=== PATIENT | female | born 1960 | race American Indian/Alaskan Native ===

== ENCOUNTER 2016-08-08 10:39 | Emergency (ER) | payer OTHER ==
[2016-08-08] MEDS ORDERED: BOOSTRIX IM ONE (11:54)
[2016-08-08] MEDS ORDERED: CLEOCIN IM ONE (11:54)
[2016-08-08] MEDS ORDERED: XYLOCAINE 1% 20 mL INFILTRATI ONE (11:54)
--- NOTE | 2016-08-08 11:56 | Emergency Department Report ---
Upper Extremity - HPI Chief Complaint: Extremity Injury, Upper Stated Complaint: FINGER PAIN Time Seen by Provider: 08/08/16 11:43 Upper Extremity: Right Middle Finger (swollen red painful for the past several days) Mechanism: Other (no injury) Symptoms: Yes Pain with Movement, Yes Limited Range of Movement, Yes Swelling, No Deformity ED Review of Systems ROS: Stated complaint: FINGER PAIN Other details as noted in HPI Constitutional: denies: chills, fever Eyes: as per HPI ENT: as per HPI Respiratory: no symptoms reported Gastrointestinal: denies: nausea, vomiting Skin: change in color, change in hair/nails ED Past Medical Hx - Past Medical History Previous Medical History?: No - Surgical History Past Surgical History?: No - Social History Smoking Status: Never Smoker Substance Use Type: None - Medications Home Medications: Home Medications Medication Instructions Recorded Confirmed Last Taken Type Cephalexin [Keflex] 500 mg PO Q6HR #40 capsule 08/08/16 Unknown Rx Sulfamethoxazole/Trimethoprim 1 each PO BID #20 tablet 08/08/16 Unknown Rx [Bactrim DS TAB] traMADol [Ultram 50 MG tab] 50 mg PO Q4HR PRN #15 tablet 08/08/16 Unknown Rx Upper Extremity Exam - Exam General: Vital signs noted. No distress. Alert and acting appropriately. Head and Torso: No HEENT Abnormality, No Neck Tenderness, No Chest/Lungs Abnormality, No Abdominal Tenderness, No Back Tenderness Arm Exam: No Arm/Humerus Tenderness Elbow: No Elbow Tenderness Forearm: No Forearm Tenderness, No Forearm Deformity, No Pain with Pronation, No Pain with Supination Wrist: Yes Normal ROM in Wrist, No Wrist Tenderness, No Wrist Deformity, No Snuffbox Tenderness Hand: Yes Digit(s) Deformity (right third paronychia with cellulitis extending to MIP no axillary or trochlear adenopathy, no lymphangitis.) CMS Exam: Yes Normal Distal Pulses, Yes Normal Capillary Refill, Yes Normal Distal Sensation ED Course Vital Signs 08/08/16 10:48 Temperature 98.3 F Pulse Rate 67 Respiratory 20 Rate Blood Pressure 160/93 O2 Sat by Pulse 99 Oximetry - I & D Right Finger Type of Procedure: Simple Site: right third distal phalanx Blade Size: 11 I & D Procedure: betadine prep, sterile drapes applied, sterile dressing applied Progress: Significant paronychia, incision was made laterally medially and superiorly. No felon. Copious amount of purulent discharge expressed wound cultures obtained finger irrigated extensively with Betadine solution palpation recheck in 24-48 hrs. Critical care attestation.: If time is entered above; I have spent that time in minutes in the direct care of this critically ill patient, excluding procedure time. ED Disposition Clinical Impression: Paronychia of finger of right hand Disposition: DISCHARGED TO HOME OR SELFCARE Is pt being admited?: No Condition: Stable Instructions: Paronychia (ED) Additional Instructions: Return in 2448 hrs. for wound recheck. Take all antibiotics as prescribed. Finish Prescription. Prescriptions: Cephalexin [Keflex] 500 mg PO Q6HR #40 capsule Sulfamethoxazole/Trimethoprim [Bactrim DS TAB] 1 each PO BID #20 tablet traMADol [Ultram 50 MG tab] 50 mg PO Q4HR PRN #15 tablet PRN Reason: Pain Referrals: PRIMARY CARE, [Primary Care Provider] - 3-5 Days
[2016-08-08] MEDS ORDERED: NACL 0.9% 500 ML IR ONE (12:23)
[2016-08-08] MEDS ORDERED: NACL 0.9% IR ONE (12:28)
[2016-08-08 12:43] VITALS: BP 154/90
[2016-08-08] MEDS ORDERED: PERCOCET 5/325 ONE (12:49)
[2016-08-08] MEDS ORDERED: PERCOCET 5/325 PO ONE (12:53)
== END 2016-08-08 13:04 | disposition home or self-care (01) ==
LOC: ED 10:39
DX: L03.011 Cellulitis of right finger (principal)
CPT/HCPCS: 87076; 87116; 87186; 90471; 90715; 96372; 99283

== ENCOUNTER 2016-08-11 08:45 | Emergency (ER) | payer OTHER ==
[2016-08-11 08:53] VITALS: BP 152/90
--- NOTE | 2016-08-11 09:27 | Emergency Department Report ---
ED General Adult HPI - General Chief complaint: Laceration/Recheck/Suture Stated complaint: WOUND CARE Time Seen by Provider: 08/11/16 08:58 Source: patient Mode of arrival: Ambulatory Limitations: No Limitations - History of Present Illness Initial comments: PT states she is here for recheck of her finger. PT states she had her finger drained on . PT states she changed the dressing yesterday. PT states the swelling is improving. PT states the pain improved. PT states that the I and D site will still bleed a little bit. PT states she is hoping to go back to work. Complaint: wound recheck -: days(s) (3 days ago is when pt had the I and D), week(s) (three weeks ago is when pt first noticed swelling to finger) Location: upper extremity (R long finger ) Severity scale (0 -10): 0 Improves with: medication, other (I and D ) Associated Symptoms: denies: fever/chills, nausea/vomiting Treatments Prior to Arrival: none - Related Data Previous Rx's Medication Instructions Recorded Last Taken Type Cephalexin [Keflex] 500 mg PO Q6HR #40 capsule 08/08/16 Unknown Rx Sulfamethoxazole/Trimethoprim 1 each PO BID #20 tablet 08/08/16 Unknown Rx [Bactrim DS TAB] traMADol [Ultram 50 MG tab] 50 mg PO Q4HR PRN #15 tablet 08/08/16 Unknown Rx Allergies Allergy/AdvReac Type Severity Reaction Status Date / Time No Known Allergies Allergy Verified 08/08/16 12:28 ED Review of Systems ROS: Stated complaint: WOUND CARE Other details as noted in HPI Comment: All other systems reviewed and negative Constitutional: denies: chills, fever Musculoskeletal: as per HPI, other (decrease in R finger swelling ) Skin: other (I and D sites, bleed at times, denies drainage ) ED Past Medical Hx - Past Medical History Previous Medical History?: No - Surgical History Past Surgical History?: No - Social History Smoking Status: Never Smoker Substance Use Type: None - Medications Home Medications: Home Medications Medication Instructions Recorded Confirmed Last Taken Type Cephalexin [Keflex] 500 mg PO Q6HR #40 capsule 08/08/16 08/11/16 Unknown Rx Sulfamethoxazole/Trimethoprim 1 each PO BID #20 tablet 08/08/16 08/11/16 Unknown Rx [Bactrim DS TAB] traMADol [Ultram 50 MG tab] 50 mg PO Q4HR PRN #15 tablet 08/08/16 08/11/16 Unknown Rx ED Physical Exam - General Limitations: No Limitations General appearance: alert, in no apparent distress - Head Head exam: Present: atraumatic, normocephalic - Eye Eye exam: Present: normal appearance. Absent: conjunctival injection - ENT ENT exam: Present: normal exam - Neck Neck exam: Present: normal inspection, full ROM - Cardiovascular Cardiovascular Exam: Present: regular rate, normal rhythm - Extremities Exam Extremities exam: Present: normal capillary refill - Expanded Upper Extremity Exam Right Forearm Wrist exam: Present: normal inspection, full ROM. Absent: tenderness Hand Wrist exam: Present: full ROM, tenderness, swelling, other (R long finger with 3 I and D sites around nail bed, no active bleeding or drainage. Swelling noted to R MCP. The surrounding skin is not cellulitic, no streaking up hand. The skin to pt's finger tip is moist. PT had on two gauze dressing and a vasoline gauze dressing. ). Absent: deformity, crepidus, erythema, subungual hematoma - Back Exam Back exam: Present: normal inspection, full ROM - Neurological Exam Neurological exam: Present: alert, oriented X3 - Psychiatric Psychiatric exam: Present: normal affect, normal mood - Skin Skin exam: Present: warm, dry. Absent: erythema ED Course Vital Signs 08/11/16 08:50 Temperature 98.5 F Pulse Rate 65 Respiratory 16 Rate Blood Pressure 152/90 O2 Sat by Pulse 100 Oximetry - Reevaluation(s) Reevaluation #1: 08/11/16 09:44 PT states swelling has improved. Per previous chart, proximal to the I and D site was cellulitic. On today's exam, skin is not red, however site is still swollen. PT aware that she will need to keep her skin open to air at times to allow proper healing. PT aware she will need to continue taking both antibiotics. PT has no questions at this time. - Pulse Oximetry Interpretation Digit-Finger Initial Pulse Oximetry Readin Actions Taken: none ED Medical Decision Making - Differential Diagnosis cellulitis, paryonchia, abscess Critical care attestation.: If time is entered above; I have spent that time in minutes in the direct care of this critically ill patient, excluding procedure time. ED Disposition Clinical Impression: Paronychia of finger of right hand Disposition: DISCHARGED TO HOME OR SELFCARE Is pt being admited?: No Does the pt Need Aspirin: No Condition: Stable Instructions: Abscess (ED), Cellulitis (ED) Additional Instructions: Wash your finger with antibiotic soap at least twice a day. Pat dry. You can cover with a thin layer of over the counter antibiotic ointment. If you are going to be up and active, cover with a thin layer of dry non stick gauze. When you can, keep site open to air so the skin won't get too moist. Return in 2 more days for recheck Return to hospital sooner if your swelling or redness increase or you have concerns Forms: Work/School Release Form(ED) Time of Disposition: 09:51
[2016-08-11] MEDS ORDERED: TRIPLE ANTIBIOTIC TP ONE ×2 (09:31→09:38)
== END 2016-08-11 10:11 | disposition home or self-care (01) ==
LOC: ED 08:45
DX: L03.011 Cellulitis of right finger (principal)
CPT/HCPCS: 99282; A6250